=== PATIENT | male | born 1945 | race Caucasian/White ===

== ENCOUNTER → 2016-06-14 | Outpatient (CLI) | payer OTHER | LOC: BHFA 14:45 | PROVIDERS: ATTEND Internal Medicine Cardiovascular Disease | DX: Z01.810 Encounter for preprocedural cardiovascular examination (principal); I49.3 Ventricular premature depolarization | CPT/HCPCS: 82784-90; 86334-90 ==

== ENCOUNTER → 2016-06-17 | Outpatient (CLI) | payer OTHER | LOC: BHFA 11:30 | PROVIDERS: ATTEND Internal Medicine Cardiovascular Disease | DX: Z01.810 Encounter for preprocedural cardiovascular examination (principal); I42.9 Cardiomyopathy, unspecified ==

== ENCOUNTER 2016-06-29 11:10 | Day surgery (SDC) | payer OTHER ==
[~2016-06-29 11:10] MED LIST: ceFAZolin 2 GM/DEXTROSE 100 ML IV ONE
[2016-06-29] MEDS ORDERED: BUPIVACAINE 0.5% 30 ML SDV ONE (12:27)
[2016-06-29] MEDS ORDERED: CEFAZOLIN 2 GM/DEXTROSE/100 ML BAG IV ONE (12:43)
[2016-06-29] MEDS ORDERED: PROPOFOL 200 MG/20 ML VIAL ONE (13:58)
[2016-06-29] MEDS ORDERED: fentaNYL 100 MCG/2 ML INJ ONE (13:58)
[2016-06-29] MEDS ORDERED: ROCURONIUM 50 MG/5 ML VIAL ONE (13:59)
[2016-06-29] MEDS ORDERED: LIDOCAINE 2% 100 MG/5 ML SYR ONE (13:59)
[2016-06-29] MEDS ORDERED: SUGAMMADEX SODIUM 200 MG/2 ML VIAL IVP ONE (14:35)
--- NOTE | 2016-06-30 04:19 | GOP ---
[f rep st] OPERATIVE REPORT DATE OF OPERATION: SURGEON: Justyn Pack MD ELECTRICIAN REFINERY: Dinah Rojas, MORALES PREOPERATIVE DIAGNOSIS: Incisional umbilical hernia. POSTOPERATIVE DIAGNOSIS: Incisional umbilical hernia. PROCEDURE PERFORMED: Repair of incisional hernia. FINDINGS: The patient was found to have a 2 cm defect in the periumbilical area from a previous per iumbilical incision. DESCRIPTION OF PROCEDURE: The patient was taken to the operating room, where he received a satisfac tory general endotracheal anesthesia by Dr. Dumont. Placed in supine position, prepped and draped in usual sterile fashion. A circumareolar incision was made. Using the previous old scar. Dissectio n extended down through the subcutaneous tissue and down to the fascia. The hernia sac was dissecte d free from surrounding subcutaneous tissue and off the back of the umbilical skin. The sac was ope abraham at the internal ring, its contents were reduced. Excess sac was amputated. The wound was close d in a [id number] 2-layer closure with interrupted 0 Surgilon mattress sutures. The wounds wer e infiltrated with 0.5% Marcaine. Subcu was closed with 3-0 Vicryl and the skin with a 4-0 Monocryl subcuticular stitch. We elected not to use mesh in him because of a recent C diff infection. He t olerated the procedure quite well, taken to the recovery room in good condition. Blood loss 0. Anesthesia was Dr. Dumont. /[id number]/MODL
== END 2016-06-29 15:45 | disposition home or self-care (01) ==
LOC: FSGY 11:10
PROVIDERS: ATTEND Surgery
PROC: 0WQF0ZZ Repair Abdominal Wall, Open Approach (ICD-10-PCS; principal; 2016-06-29 12:45)
DX: K43.2 Incisional hernia without obstruction or gangrene (principal); I42.0 Dilated cardiomyopathy; C90.00 Multiple myeloma not having achieved remission
CPT/HCPCS: J0690; J2001; J2704; J3010

== ENCOUNTER → 2016-10-11 | Outpatient (CLI) | payer OTHER | LOC: BMCIMAGING 13:41 | PROVIDERS: ATTEND Physical Medicine & Rehabilitation | DX: M81.0 Age-related osteoporosis without current pathological fracture (principal) ==

== ENCOUNTER → 2016-10-25 | Outpatient (CLI) | payer OTHER | LOC: FIMAGING 15:05 | PROVIDERS: ATTEND Physical Medicine & Rehabilitation | DX: M50.01 Cervical disc disorder with myelopathy, high cervical region (principal); M50.021 Cervical disc disorder at C4-C5 level with myelopathy; M50.022 Cervical disc disorder at C5-C6 level with myelopathy; M50.023 Cervical disc disorder at C6-C7 level with myelopathy; M50.03 Cervical disc disorder with myelopathy, cervicothoracic region; M51.86 Other intervertebral disc disorders, lumbar region; M48.02 Spinal stenosis, cervical region; M48.03 Spinal stenosis, cervicothoracic region; M48.06 Spinal stenosis, lumbar region ==

== ENCOUNTER → 2017-07-15 | Outpatient (CLI) | payer OTHER | LOC: BHFA 14:45 | PROVIDERS: ATTEND Internal Medicine Cardiovascular Disease | DX: I42.9 Cardiomyopathy, unspecified (principal) ==

== ENCOUNTER → 2017-07-18 | Outpatient (CLI) | payer OTHER | LOC: BHFA 15:00 | PROVIDERS: ATTEND Internal Medicine Cardiovascular Disease | DX: I42.9 Cardiomyopathy, unspecified (principal); I38 Endocarditis, valve unspecified; G47.34 Idiopathic sleep related nonobstructive alveolar hypoventilation; C90.00 Multiple myeloma not having achieved remission; I49.9 Cardiac arrhythmia, unspecified; I27.20 Pulmonary hypertension, unspecified | CPT/HCPCS: 82784-90; 86334-90 ==

== ENCOUNTER → 2018-02-17 | Outpatient (CLI) | payer OTHER | LOC: FIMAGING 09:18 | PROVIDERS: ATTEND Physical Medicine & Rehabilitation | DX: M25.511 Pain in right shoulder (principal); C90.00 Multiple myeloma not having achieved remission; M25.512 Pain in left shoulder ==

== ENCOUNTER → 2018-03-08 | Outpatient (CLI) | payer OTHER | LOC: FIMAGING 10:31 | PROVIDERS: ATTEND Internal Medicine Cardiovascular Disease | DX: Z03.89 Encounter for observation for other suspected diseases and conditions ruled out (principal) | CPT/HCPCS: 71046; 78582; A9540 ==

== ENCOUNTER → 2018-05-23 | Outpatient (CLI) | payer OTHER | LOC: CIMAGING 13:54 | PROVIDERS: ATTEND Internal Medicine | DX: J18.9 Pneumonia, unspecified organism (principal); I51.7 Cardiomegaly; I42.9 Cardiomyopathy, unspecified; Z87.09 Personal history of other diseases of the respiratory system | CPT/HCPCS: 71046-PO ==

== ENCOUNTER → 2018-06-06 | Outpatient (CLI) | payer OTHER | LOC: CIMAGING 12:50 | PROVIDERS: ATTEND Internal Medicine | DX: J98.4 Other disorders of lung (principal); I51.7 Cardiomegaly | CPT/HCPCS: 71046-PO ==

== ENCOUNTER → 2018-07-11 | Outpatient (CLI) | payer OTHER | LOC: CIMAGING 16:05 ==